=== PATIENT | male | born 1975 | race Caucasian/White ===

== ENCOUNTER 2025-04-30 17:27 | Emergency (ER) | payer OTHER ==
[~2025-04-30] VITALS: Ht 177.8 cm; Wt 109.0 kg
[2025-04-30] MEDS ORDERED: HYDROXYZINE HCL50 MG PO (17:49)
[2025-04-30] MEDS ORDERED: ZYRTEC10 MG PO (17:49)
[2025-04-30] MEDS ORDERED: THERA-GEL251 ML TOP (17:50)
[2025-04-30] MEDS ORDERED: NASACORT10.8 ML NAS (17:50)
[2025-04-30 19:19] LABS: BILIRUBIN, URINE NEGATIVE (negative); BLOOD/HGB, URINE NEGATIVE (Negative); KETONE, URINE NEGATIVE (Negative); LEUK ESTERASE, URINE NEGATIVE (negative); NITRITE, URINE NEGATIVE (negative)
[2025-04-30 19:23] LABS: BACTERIA, URINE NONE SEEN /hpf (negative); CASTS, URINE NONE SEEN \\lpf; CRYSTALS, URINE NONE SEEN (0-1+); EPITHELIAL CELLS, URINE 0 /lpf (0-1+); RED BLOOD CELLS, URINE 0-1 /hpf (0-5); WHITE BLOOD CELLS, URINE 0-1 /HPF (0-5)
[2025-04-30 19:24] LABS: COLLECTION TYPE, URINE CLEAN CATCH; REFLEX CULTURE, URINE No (No)
[2025-04-30 20:15] VITALS: BP 152/95
== END 2025-04-30 20:15 | disposition home or self-care (01) ==
LOC: ED 17:27
PROVIDERS: Emergency Medicine
DX: N43.3 Hydrocele, unspecified (principal); Z79.899 Other long term (current) drug therapy
CPT/HCPCS: 76870; 81001; 99284